=== PATIENT | female | born 1990 | race Caucasian/White ===

== ENCOUNTER 2019-12-31 01:01 | Emergency (ER) | payer OTHER ==
[~2019-12-31] VITALS: Ht 170.2 cm; Wt 57.2 kg
[2019-12-31] MEDS ORDERED: IV NORMAL SALINE 1,000ML 1,000 ML IV ONE (02:00)
[2019-12-31] MEDS ORDERED: MORPHINE SULFATE 4 MG/ML DISP.SYRIN. IV ONE (02:00)
[2019-12-31] MEDS ORDERED: ONDANSETRON PF 4 MG/2 ML VIAL. IVP ONE (02:00)
[2019-12-31] MEDS ORDERED: KETOROLAC 30 MG/ML VIAL. IVP ONE (02:00)
[2019-12-31 02:15] LABS: BASO # 0.1 x10^3/uL (0.0-0.2); BASO % 1 % (0-3); EOS # 0.3 x10^3/uL (0.0-0.7); EOS % 3 % (0-3); HEMATOCRIT 40.4 % (36.0-47.0); HEMOGLOBIN 12.8 g/dL (12.0-15.5); LYMPH # 3.2 x10^3/uL (1.0-4.8); LYMPH % 28 % (24-48); MEAN CORPUSCULAR HEMOGLOBIN 26 pg (25-35); MEAN CORPUSCULAR HGB CONC 32 g/dL (31-37); MEAN CORPUSCULAR VOLUME 81 fL (79-100); MONO # 0.8 x10^3/uL (0.0-1.1); MONO % 7 % (0-9); NEUT # 6.9 x10^3uL (1.8-7.7); NEUT % 61 % (31-73); PLATELET COUNT 248 x10^3/uL (140-400); RED BLOOD COUNT 4.98 x10^6/uL (3.50-5.40); RED CELL DISTRIBUTION WIDTH 14.4 % (11.5-14.5); WHITE BLOOD COUNT 11.3 x10^3/uL (4.0-11.0)
--- NOTE | 2019-12-31 02:25 | PHYS DOC ---
Past History Past Medical History: No Pertinent History Past Surgical History: No Surgical History Alcohol Use: None Adult General Chief Complaint Chief Complaint: ABDOMINAL PAIN HPI HPI Patient is a 29-year-old previously healthy female who presents to the emergency room complaining of severe onset right abdominal pain that radiates intermittently to the flank. She woke up suddenly in the middle of the night with this pain. She has never had anything like this previously. Certain positions improves the pain, however the pain is constant and unbearable. She states it is worse than childbirth. She denies any associated symptoms. She does not have any diarrhea, constipation, nausea, vomiting, fever. She felt fine when she went to bed last night. Review of Systems Review of Systems Complete ROS is negative unless otherwise documented in HPI Current Medications Current Medications Current Medications Medications (Trade) Dose Ordered Sig/Ricky Start Time Stop Time Status Last Admin Dose Admin Ketorolac Tromethamine (Toradol 30mg Vial) 30 mg 1X ONCE 12/31/19 02:00 12/31/19 02:01 DC Morphine Sulfate (Morphine 4mg Syringe) 4 mg 1X ONCE 12/31/19 02:00 12/31/19 02:01 DC Ondansetron HCl (Zofran) 4 mg 1X ONCE 12/31/19 02:00 12/31/19 02:01 DC Sodium Chloride 1,000 ml @ 1,000 mls/hr 1X ONCE 12/31/19 02:00 12/31/19 02:59 Allergies Allergies Allergies Coded Allergies Type Severity Reaction Last Updated Verified No Known Drug Allergies 12/31/19 No Physical Exam Physical Exam General: Awake, alert, moderate distress. Well Nourished, well hydrated. Cooperative HEENT: Atraumatic, EOMI, PERRL, airway patent, moist oral mucosa Neck: Supple, trachea midline Respiratory: CTA bilaterally, normal effort, no wheezing/crackles CV: RRR, no murmur, cap refill <2 GI: Exam limited due to patient distress, rebound, guarding, right lower quadrant tenderness MSK: No obvious deformities Skin: Warm, dry, intact Neuro: A&O x3, speech NL, sensory and motor grossly intact, no focal deficits Psych: Normal affect, normal mood, not suicidal or homicidal Current Patient Data Vital Signs Vital Signs Date Time Temp Pulse Resp B/P (MAP) Pulse Ox O2 Delivery O2 Flow Rate FiO2 12/31/19 01:05 98.4 85 18 127/87 (100) 98 Room Air EKG EKG [] Radiology/Procedures Radiology/Procedures [] Heart Score Risk Factors: Risk Factors: DM, Current or recent (<one month) smoker, HTN, HLP, family his tory of CAD, obesity. Risk Scores: Risk Factors: DM, Current or recent (<one month) smoker, HTN, HLP, family history of CAD, obesity. Course & Med Decision Making Course & Med Decision Making Pertinent Labs and Imaging studies reviewed. (See chart for details) Patient is 29-year-old female presents the emergency room complaining of severe right flank pain. She denies any chance of being . Differential includes kidney stone versus appendicitis versus gastroenteritis versus perforated bowel. I think it is most likely to be a kidney stone based off of her sudden onset of symptoms and progression. CT abdomen pelvis and abdominal labs were ordered. Patient was given medications for pain control. Dragon Disclaimer Dragon Disclaimer This electronic medical record was generated, in whole or in part, using a voice recognition dictation system. Departure Departure: Impression: Primary Impression: Kidney stone Disposition: 01 DC HOME SELF CARE/HOMELESS Condition: STABLE Patient Instructions: Kidney Stones Scripts Oxycodone HCl/Acetaminophen (Percocet 5-325 mg Tablet) 1 Each Tablet 1 TAB PO PRN QID PRN for SEVERE PAIN 7-10 MDD 4 Tablet(s) for 5 Days, #10 TAB 0 Refills Prov: HORACE MICHEL MD 12/31/19 HORACE MICHEL MD Dec 31, 2019 02:25
[2019-12-31 02:27] LABS: CALCIUM 9.3 mg/dL (8.5-10.1); CREATININE 0.7 mg/dL (0.6-1.0); GFR 97.6
[2019-12-31 02:32] LABS: POTASSIUM 4.4 mmol/L (3.5-5.1)
[2019-12-31 02:34] LABS: ALBUMIN/GLOBULIN RATIO 1.2 (1.0-1.7); TOTAL BILIRUBIN 0.4 mg/dL (0.2-1.0); TOTAL PROTEIN 7.3 g/dL (6.4-8.2)
[2019-12-31 03:12] LABS: BILIRUBIN,URINE NEG (NEG); CLARITY,URINE CLEAR; COLOR,URINE YELLOW; GLUCOSE,URINE NEG (NEG)
[2019-12-31 03:13] LABS: BACTERIA,URINE 0 /HPF (0-FEW); NITRITE,URINE NEG (NEG); RBC,URINE 0 /HPF (0-2); SQUAMOUS EPITHELIAL CELL,UR OCC /LPF; UROBILINOGEN,URINE 0.2 mg/dL (0.2 mg/dL); WBC,URINE RARE /HPF (0-4)
--- NOTE | 2019-12-31 03:28 | RAD ---
INDICATION: Reason: R flank and abdomen pain / Spl. Instructions: / History: . COMPARISON: None. TECHNIQUE: Axial CT images obtained through the abdomen and pelvis without contrast. One or more of the following individualized dose reduction techniques were utilized for this examination: 1. Automated exposure control; 2. Adjustment of the mA and/or kV according to patient size; 3. Use of iterative reconstruction technique. FINDINGS: Abdominal aorta is not grossly aneurysmal. No intrahepatic bile duct dilation. Limited assessment of the pancreas without contrast. Spleen is unremarkable. Urinary bladder is partially distended. Prominence of the left extrarenal pelvis. There is a calcification within the left hemipelvis measuring approximately 5 mm. Multiple calcifications in the bilateral hemipelvis. Some of these measure up to about 4 to 5 mm. Prominence of the right extrarenal pelvis. Moderate stool throughout the colon. Appendix is partially seen without definite inflammatory changes seen. No dilated loops of bowel to suggest obstruction. Small fat-containing umbilical hernia. Mild indistinctness of the fat adjacent to the urinary bladder. IMPRESSION: * Prominence of the right greater than left extrarenal pelvis. Cannot follow the ureters through the pelvis secondary to little intra-abdominal fat and multiple unopacified loops of bowel within the region but there are numerous calcifications of the pelvis bilaterally. The majority of these are secondary to phleboliths but would be difficult to exclude a ureter stone given this finding. * Appendix is partially seen without inflammatory changes at the visualized portion. * Mild haziness to the fat adjacent to the urinary bladder. Would correlate with symptoms and lab markers to ensure that there is not a pathologic cause such as mild cystitis. Electronically signed by: Giorgio Lopez MD (12/31/2019 3:25 AM) [id number]
[2019-12-31] MEDS ORDERED: OXYC-325 PO (03:35)
[2019-12-31 03:50] VITALS: BP 94/58
== END 2019-12-31 03:55 | disposition home or self-care (01) ==
LOC: ER 01:01
DX: N20.0 Calculus of kidney (principal)
CPT/HCPCS: 36415; 74176; 80053; 81001; 81025; 85025; 96361; 96374; 96375; 99284; J1885; J2270; J2405; J7030